=== PATIENT | female | born 1965 | race African-American/Black ===

== ENCOUNTER 2020-12-20 19:12 | Emergency (ER) | payer OTHER ==
[~2020-12-20] VITALS: Ht 167.6 cm; Wt 100.0 kg
[2020-12-20 22:51] LABS: HEMATOCRIT. 33.8 % (36.0-48.0); HEMOGLOBIN. 11.1 g/dL (12.0-16.0); MEAN CORPUSCULAR HEMOGLOBIN 27.2 pg (28.0-32.0); MEAN CORPUSCULAR VOLUME 82.9 fL (81.0-99.0); PLATELET 411 x1000/uL (130-400); RED BLOOD CELL COUNT 4.07 mill/uL (4.2-5.4); RED CELL DISTRIBUTION WIDTH 13.5 % (11.6-14.6)
[2020-12-20 22:56] LABS: CHLORIDE 104 mEq/L (98-107)
[2020-12-20] MEDS ORDERED: POTASSIUM CHLORIDE 20MEQ TABLET SR PO ONE (23:15)
[2020-12-20 23:17] LABS: PLATELET ESTIMATE SLIGHTLY INCREASED
[2020-12-21 00:14] VITALS: BP 125/69
== END 2020-12-21 00:15 | disposition home or self-care (01) ==
LOC: ER 19:21
DX: R55 Syncope and collapse (principal); R19.7 Diarrhea, unspecified; I10 Essential (primary) hypertension
CPT/HCPCS: 36415; 80053; 85025; 93005; 99284